=== PATIENT | female | born 1980 | race African-American/Black ===

== ENCOUNTER 2020-09-07 00:31 | Emergency (ER) | payer OTHER ==
[~2020-09-07] VITALS: Ht 170.2 cm; Wt 107.0 kg
[2020-09-07 01:00] VITALS: BP 216/109
[2020-09-07] MEDS ORDERED: LABETALOL 5MG/ML SYR 20 MG/4 ML SYRINGE IV ONE (01:15)
[2020-09-07] MEDS ORDERED: SODIUM CHLORIDE 0.9% 1,000 ML IV ONE (01:15)
== END 2020-09-07 02:12 | disposition left against medical advice (07) ==
LOC: EDBD 00:31 → ER 00:31
DX: S29.8XXA Other specified injuries of thorax, initial encounter (principal); S39.81XA Other specified injuries of abdomen, initial encounter; I16.0 Hypertensive urgency; E11.9 Type 2 diabetes mellitus without complications; V43.52XA Car driver injured in collision with other type car in traffic accident, initial encounter; Y93.89 Activity, other specified; Y92.488 Other paved roadways as the place of occurrence of the external cause
CPT/HCPCS: 99283; J7030